=== PATIENT | male | born 1960 | race Caucasian/White ===

== ENCOUNTER 2018-08-27 11:02 | Emergency (ER) | payer OTHER ==
[~2018-08-27] VITALS: Ht 185.4 cm; Wt 81.6 kg
[2018-08-27] MEDS ORDERED: TUSSI PRES-B L120 M1 PO (14:01)
[2018-08-27] MEDS ORDERED: ZITHROMAX TRI-500 MG PO (14:01)
== END 2018-08-27 14:06 | disposition home or self-care (01) ==
LOC: EDBD 11:02 → ER 11:02
DX: B34.9 Viral infection, unspecified (principal)